=== PATIENT | female | born 1995 | race Caucasian/White ===

== ENCOUNTER 2017-11-25 01:21 | Emergency (ER) | payer BC, OTHER ==
[2017-11-25] MEDS ORDERED: Ketorolac Tromethamine 30 MG/ML VIAL ONE (02:01)
== END 2017-11-25 02:15 | disposition home or self-care (01) ==
LOC: ERS 01:21
DX: S61.511A Laceration without foreign body of right wrist, initial encounter (principal); F90.9 Attention-deficit hyperactivity disorder, unspecified type; W26.8XXA Contact with other sharp object(s), not elsewhere classified, initial encounter
CPT/HCPCS: 12001; 96372; J1885